=== PATIENT | female | born 1995 ===

== ENCOUNTER 2017-05-25 10:03 | Emergency (ER) | payer BC ==
[2017-05-25] MEDS ORDERED: Ketorolac INJ* 30 MG/ML 1 ML VIAL IV PUSH ONE (10:51)
[2017-05-25 11:26] LABS: ABS Basophils 0 10^3/ul (0-0.2); ABS Eosinophils 0 10^3/ul (0-0.6); ABS Neutrophils 10.4 10^3/ul (1.5-7.7); ABS Nucleated RBC 0 10^3/ul; Eosinophil % 0 % (0-6); Hematocrit 38 % (35-47); Hemoglobin 12.9 g/dl (12.0-16.0); Lymphocyte % 7.9 % (25-47); Mean Corpuscular HGB Conc 34 g/dl (31-36); Mean Corpuscular Hemoglobin 29 pg (27-31); Mean Corpuscular Volume 86 fL (80-97); Mean Platelet Volume 9 um3 (7.4-10.4); Nucleated Red Blood Cells % 0; Platelet Count 275 10^3/ul (150-450); Red Blood Count 4.44 10^6/ul (4.0-5.4); Red Cell Distribution Width 13 % (10.5-15); White Blood Count 12.4 10^3/ul (3.5-10.8)
[2017-05-25 11:37] LABS: Urine Appearance Clear; Urine Blood 2+ (Negative); Urine Color Yellow; Urine Ketones Negative (Negative); Urine Protein Negative (Negative); Urine Specific Gravity 1.021 (1.010-1.030); Urine Urobilinogen Negative (Negative)
[2017-05-25 11:44] LABS: EGFR Non-African American 103.3 (>60)
--- NOTE | 2017-05-25 12:37 | RAD ---
INDICATION: Pelvic pain COMPARISON: None. TECHNIQUE: Real-time transabdominal and transvaginal ultrasound examination of the female pelvis including grayscale and Doppler color flow imaging. FINDINGS: Uterus: The uterus is normal in size and echogenicity measuring 5.8 x 3.1 x 3.87. The endometrial stripe is smooth and uniform measuring 7 mm in thickness. Within the endometrium there is echogenic fluid and debris. Ovaries: The right and left ovary measure 3.2 x 1.6 x 1.6 cm and 2.6 x 1.1 x 1.8 cm, respectively. Normal arterial and venous waveforms are identified. Appearance is within normal limits for the patient's age. There is no free fluid in the cul-de-sac. IMPRESSION: The endometrial stripe is not pathologically thickened but there is echogenic material within the endometrium. Menstrual blood is considered most likely. Please correlate to stage of menstruation and/or beta-HCG.
[2017-05-25] MEDS ORDERED: Iohexol 300* (CONTRAST) 10 ML SDV IV ONE (13:09)
--- NOTE | 2017-05-25 13:47 | RAD ---
INDICATION: Lower abdominal pain. COMPARISON: Correlation is made with a prior pelvic ultrasound from May 25, 2017. TECHNIQUE: A CT scan of the abdomen and pelvis was performed with intravenous and without oral contrast following intravenous injection of 97 ml of Omnipaque 300 nonionic contrast. Contiguous axial sections were obtained from the lung bases through the symphysis pubis. Images were reconstructed in the coronal and sagittal planes. FINDINGS: The lung bases are clear. No pleural effusion is present. The liver and spleen are within normal limits in size without significant focal abnormality. No calcified gallstones are seen. The pancreas appears to be within normal limits in size. The kidneys and adrenal glands are normal in size. No hydronephrosis is seen. No significant focal renal abnormality is seen. The aorta is normal in caliber and demonstrates homogeneous contrast opacification. No significant enlarged retroperitoneal lymph nodes are seen. Evaluation of the bowel is limited on this nonoral contrast study. There is no evidence for obstruction. The appendix is not well demonstrated. There is mild descending and sigmoid diverticulosis. There is no evidence for diverticulitis or colitis. The uterus is anteverted and normal in size. No free intraperitoneal air or fluid is seen. No significant focal osseous abnormality is seen. IMPRESSION: LIMITED NONCONTRAST STUDY, NO ACUTE FINDING IS SEEN.
[2017-05-25 14:38] VITALS: BP 131/74
--- NOTE | 2017-05-26 18:50 | ED ---
Thomas Beckwith Angela, scribed for Richard Weir MD on 05/25/17 at 1046 . Abdominal Pain/Female - HPI Summary HPI Summary: This pt is a 21 y/o female presenting to [facility] c/o lower abdominal pain and headache since yesterday. Pt reports her headache began yesterday morning and then developed abdominal pain in the middle of the day yesterday. Her pain is described as constant dull pain with intermittent sharp pain. Pt rates her pain 7/10 in severity and notes she has to "crouch over" to alleviate her pain. She reports she had nausea and diarrhea yesterday. Denies nausea today, vomiting, fever. Denies dysuria, vaginal discharge, urinary urgency or frequency. LMP: she is currently on it. - History of Current Complaint Chief Complaint: EDAbdPain Stated Complaint: ABD PAIN/HEADACHE Time Seen by Provider: 05/25/17 10:36 Hx Obtained From: Patient Onset/Duration: Lasting Days - 1, Still Present Timing: Days - 1 Severity Currently: Severe Pain Intensity: 7 Pain Scale Used: 0-10 Numeric Location: Other - lower abd pain Radiates: No Character: Sharp - at times, Dull - constant Aggravating Factor(s): Nothing Alleviating Factor(s): Other: - crouching over Associated Signs and Symptoms: Positive: Vaginal Bleeding - secondary to menses , Nausea - yesterday, not today, Diarrhea - yesterday, Other: - headache. Negative: Fever, Urinary Symptoms, Vomiting Allergies/Adverse Reactions: Allergies Allergy/AdvReac Type Severity Reaction Status Date / Time No Known Allergies Allergy Verified 05/25/17 10:08 PMH/Surg Hx/FS Hx/Imm Hx Endocrine/Hematology History: Denies: Hx Diabetes Cardiovascular History: Denies: Hx Hypertension - Surgical History Surgery Procedure, Year, and Place: septum repair Infectious Disease History: No Infectious Disease History: Denies: Traveled Outside the [place] in Last 30 Days - Family History Family History: Sister: ovarian cysts. - Social History Alcohol Use: None Substance Use Type: Reports: None Smoking Status (MU): Never Smoked Tobacco Review of Systems Negative: Fever, Chills Eyes: Negative ENT: Negative Cardiovascular: Negative Positive: Diarrhea - yesterday, Nausea - yesterday. Negative: Abdominal Pain, Vomiting Negative: burning, dysuria, discharge, frequency, urgency Positive: Headache All Other Systems Reviewed And Are Negative: Yes Physical Exam - Summary Physical Exam Summary: VITAL SIGNS: Reviewed. GENERAL: Patient is a well-developed and nourished female who is lying comfortable in the stretcher. Patient is not in any acute respiratory distress. HEAD AND FACE: Normocephalic and atraumatic. EYES: PERRLA, EOMI x 2, No injected conjunctiva. EARS: Hearing grossly intact. Ear canals and tympanic membranes are WNL. MOUTH: Oropharynx within normal limits. NECK: Supple, trachea is midline, no adenopathy, no JVD. CHEST: Symmetric, no tenderness at palpation LUNGS: Clear to auscultation bilaterally. No wheezing or crackles. CVS: RRR, S1 and S2 present, no murmurs or gallops appreciated. ABDOMEN: Soft. Lower pelvic tenderness. No signs of distention. Positive bowel sounds. No rebound no guarding, and no masses palpated. No abdominal bruit or pulsations. EXTREMITIES: FROM in all major joints, no edema, no cyanosis or clubbing. NEURO: Alert and oriented x 3. No acute neurological deficits. Speech is normal. SKIN: Dry and warm Triage Information Reviewed: Yes Vital Signs On Initial Exam: Initial Vitals Temp Pulse Resp BP Pulse Ox 98.1 F 124 18 138/86 100 05/25/17 10:05 05/25/17 10:05 05/25/17 10:05 05/25/17 10:05 05/25/17 10:05 Vital Signs Reviewed: Yes Diagnostics - Vital Signs Vital Signs Temp Pulse Resp BP Pulse Ox 05/25/17 10:05 98.1 F 124 18 138/86 100 - Laboratory Lab Results: Lab Results 05/25/17 05/25/17 05/25/17 Range/Units 11:15 11:16 11:16 WBC 12.4 H (3.5-10.8) 10^3/ul RBC 4.44 (4.0-5.4) 10^6/ul Hgb 12.9 (12.0-16.0) g/dl Hct 38 (35-47) % MCV 86 (80-97) fL MCH 29 (27-31) pg MCHC 34 (31-36) g/dl RDW 13 (10.5-15) % Plt Count 275 (150-450) 10^3/ul MPV 9 (7.4-10.4) um3 Neut % (Auto) 83.7 H (38-83) % Lymph % (Auto) 7.9 L (25-47) % Calhoun % (Auto) 8.1 H (0-7) % Eos % (Auto) 0 (0-6) % Baso % (Auto) 0.3 (0-2) % Absolute Neuts (auto) 10.4 H (1.5-7.7) 10^3/ul Absolute Lymphs (auto) 1.0 (1.0-4.8) 10^3/ul Absolute Monos (auto) 1.0 H (0-0.8) 10^3/ul Absolute Eos (auto) 0 (0-0.6) 10^3/ul Absolute Basos (auto) 0 (0-0.2) 10^3/ul Absolute Nucleated RBC 0 10^3/ul Nucleated RBC % 0 Sodium 134 (133-145) mmol/L Potassium 3.5 (3.5-5.0) mmol/L Chloride 104 (101-111) mmol/L Carbon Dioxide 23 (22-32) mmol/L Anion Gap 7 (2-11) mmol/L BUN 14 (6-24) mg/dL Creatinine 0.72 (0.51-0.95) mg/dL Est GFR ( Amer) 132.8 (>60) Est GFR (Non-Af Amer) 103.3 (>60) BUN/Creatinine Ratio 19.4 (8-20) Glucose 93 (70-100) mg/dL Calcium 9.4 (8.6-10.3) mg/dL Total Bilirubin 0.50 (0.2-1.0) mg/dL AST 12 L (13-39) U/L ALT 8 (7-52) U/L Alkaline Phosphatase 66 (34-104) U/L C-Reactive Protein 128.69 H (< 5.00) mg/L Total Protein 7.5 (6.4-8.9) g/dL Albumin 4.0 (3.2-5.2) g/dL Globulin 3.5 (2-4) g/dL Albumin/Globulin Ratio 1.1 (1-3) Lipase 14 (11.0-82.0) U/L Beta HCG, Quant < 0.60 mIU/mL Urine Color Yellow Urine Appearance Clear Urine pH 5.0 (5-9) Ur Specific Llewellyn 1.021 (1.010-1.030) Urine Protein Negative (Negative) Urine Ketones Negative (Negative) Urine Blood 2+ A (Negative) Urine Nitrate Negative (Negative) Urine Bilirubin Negative (Negative) Urine Urobilinogen Negative (Negative) Ur Leukocyte Esterase Negative (Negative) Urine WBC (Auto) Trace(0-5/hpf) (Absent) Urine RBC (Auto) 2+(6-10/hpf) A (Absent) Ur Squamous Epith Cells Present A (Absent) Urine Bacteria Absent (Absent) Urine Glucose Negative (Negative) Result Diagrams: 05/25/17 11:16 05/25/17 11:16 Lab Statement: Any lab studies that have been ordered have been reviewed, and results considered in the medical decision making process. - CT Abdomen/Pelvis CT CT Interpretation: No Acute Changes - IMPRESSION: Limited noncontrast study, no acute finding is seen. Dr. Weir has reviewed this radiology report. CT Interpretation Completed By: Radiologist - Ultrasound No standard instances Ultrasound Interpretation: No Acute Changes - Transvaginal US IMPRESSION: The endometrial stripe is not pathologically thickened but there is echogenic material within the endometrium. Menstrual blood is considered most likely. Please correlate to stage of menstruation and/or beta-HCG. Dr. Weir has reviewed this radiology report. Ultrasound Interpretation Completed By: Radiologist Re-Evaluation - Re-Evaluation First Eval Re-Evaluation Time: 14:09 Comment: I reviewed the lab, US and CT results with the pt. She will be discharged. Abdominal Pain Fem Course/Dx - Course Course Of Treatment: This pt is a 21 y/o female presenting to [facility] c/o lower abdominal pain and headache since yesterday. Pt reports her headache began yesterday morning and then developed abdominal pain in the middle of the day yesterday. Her pain is described as constant dull pain with intermittent sharp pain. Pt rates her pain 7/10 in severity and notes she has to "crouch over" to alleviate her pain. She reports she had nausea and diarrhea yesterday. Denies nausea today, vomiting, fever. Denies dysuria, vaginal discharge, urinary urgency or frequency. LMP: she is currently on it. Test results without any significant abnormalities except for WBC of 12.4, CRP of 128.7. Transvaginal US : the endometrial stripe is not pathologically thickened but there is echogenic material within the endometrium. Menstrual blood is considered most likely. Please correlate to stage of menstruation and/or beta-HCG. Abdomen/Pelvis CT: Limited noncontrast study, no acute finding is seen. In the ED course the pt was given Toradol for the pain, and her pain resolved. Pt reports she is feeling better. Therefore she will be discharged to home with follow up from her PCP. Pt was given a prescription for Naproxen for the pain. She is instructed to return to the ED for any worsening or new symptoms. Pt is hemodynamically stable, alert and oriented x3. I discussed all the findings and test results with the patient. Patient was instructed to return to the emergency room immediately if any of the symptoms return or worsens. Plan of care was discussed with the patient and understands and agrees. All questions were answered at patient satisfaction. There were no further complaints or concerns. Lung exam before discharge: CTA B/L. Good air exchange. No wheezing or crackles heard. CVS: S1 and S2 present. No murmurs appreciated. Patient is alert and oriented x 3. Patient is hemodynamically stable. Patient will be discharged home with follow up PCP in the next 2-3 days - Diagnoses Provider Diagnoses: Abdominal pain Discharge - Discharge Plan Condition: Stable Disposition: HOME Prescriptions: Naproxen TAB* [Naprosyn 250 mg TAB*] 500 mg PO BID PRN #20 tab PRN Reason: Pain Patient Education Materials: Abdominal Pain (ED) Referrals: [facility] [Outside] - 3 Days Additional Instructions: Please follow up with your primary care provider. RETURN TO THE ED FOR ANY WORSENING SYMPTOMS. The documentation as recorded by the Thomas victoria Angela accurately reflects the service I personally performed and the decisions made by , Richard Weir MD.
== END 2017-05-25 14:37 | disposition home or self-care (01) ==
LOC: ED 10:03
DX: R10.30 Lower abdominal pain, unspecified (principal); N93.9 Abnormal uterine and vaginal bleeding, unspecified; R19.7 Diarrhea, unspecified; R51 Headache
CPT/HCPCS: 36415; 74177; 76830; 80053; 81003; 81015; 83690; 84702; 85025; 86140; 87086; 96374; 99282; J1885; Q9967